=== PATIENT | female | born 1990 | race Caucasian/White ===

== ENCOUNTER 2023-08-06 12:30 | Inpatient (IN) ==
[~2023-08-06 12:30] MED LIST: NS IRRIGATION* 1,000 ML ONE
[2023-08-06] MEDS: LR 1,000 ML IV 1,000 ML IV ONE (12:49)
[2023-08-06] MEDS: REGLAN INJ 10 MG VIAL ONE (12:50)
[2023-08-06] MEDS: PEPCID 20 MG VIAL ONE (12:50)
[2023-08-06] MEDS: NOZIN NASAL SANITIZER TP ONE (12:50)
[2023-08-06] MEDS: NS 100 ML IV 100 ML ONE (13:11)
[2023-08-06] MEDS: ANCEF VIAL 1 GRAM ONE (13:11)
[2023-08-06 13:12] VITALS: BMI 22.6
[2023-08-06 13:21] LABS: BASOPHILS # (AUTO) 0.1 X10^3/uL (0.0-0.1); BASOPHILS % (AUTO) 1.1 % (0.2-1.0); EOSINOPHILS # (AUTO) 0.3 x10^3/uL (0.0-0.2); EOSINOPHILS % (AUTO) 2.6 % (0.9-2.9); HEMATOCRIT 33.9 % (36.0-47.0); HEMOGLOBIN 11.5 g/dL (12.0-16.0); LYMPHOCYTES # (AUTO) 1.1 X10^3/uL (1.3-2.9); LYMPHOCYTES % (AUTO) 10.3 % (21.0-51.0); MEAN CORPUSCULAR HEMOGLOBIN 28.2 pg (27.0-34.0); MEAN CORPUSCULAR HGB CONC 33.8 g/dL (33.0-35.0); MEAN CORPUSCULAR VOLUME 83.5 fL (80.0-100.0); MONOCYTES # (AUTO) 0.6 x10^3/uL (0.3-0.8); MONOCYTES % (AUTO) 5.1 % (0.0-13.0); NEUTROPHILS # (AUTO) 8.9 x10^3/uL (2.2-4.8); NEUTROPHILS % (AUTO) 80.9 % (42.0-75.0); PLATELET COUNT 375 X10^3/uL (150.0-450.0); RED BLOOD COUNT 4.07 X10^6/uL (3.5-5.4); RED CELL DISTRIBUTION WIDTH 13.6 % (11.6-16.5); WHITE BLOOD COUNT 10.9 X10^3/uL (3.6-10.0)
[2023-08-06] MEDS: DECADRON INJ ONE (13:23)
[2023-08-06] MEDS ORDERED: ULTANE GAS IN ONE (13:23)
[2023-08-06] MEDS: ROBINUL ONE (13:23)
[2023-08-06] MEDS: ZEMURON 100 MG VIAL ONE (13:23)
[2023-08-06] MEDS: FENTANYL VIAL INJ 100 mcg ONE (13:23)
[2023-08-06] MEDS: VERSED ONE (13:23)
[2023-08-06] MEDS: ZOFRAN INJ 4 MG VIAL ONE (13:23)
[2023-08-06] MEDS: TORADOL 30 MG VIAL ONE (13:23)
[2023-08-06] MEDS ORDERED: KETAMINE HCL ONE (13:23)
[2023-08-06 13:27] LABS: INR 1.08 (0.8-1.3)
[2023-08-06] MEDS: BETADINE SOLN ONE (13:30)
[2023-08-06 13:34] LABS: BLOOD UREA NITROGEN 10 mg/dL (7-18); CALCIUM 9.4 mg/dL (8.5-10.1); CARBON DIOXIDE 29.8 mmol/L (21-32); CHLORIDE 103 mmol/L (98-107); COR NA(FOR HYPERGLY) 141 mmol/L (136-145); CREATININE 0.67 mg/dL (0.55-1.02); GLUCOSE 116 mg/dL (65-99); POTASSIUM 3.7 mmol/L (3.5-5.1); SODIUM 141 mmol/L (136-145); eGFR NON BLACK RACES > 60 (>60)
[2023-08-06] MEDS: ProvayBLUE 0.5% ONE (13:46)
[2023-08-06] MEDS ORDERED: BENADRYL INJ 50 MG VIAL IVP PRN (14:01)
[2023-08-06] MEDS ORDERED: ZOFRAN INJ 4 MG VIAL IVP PRN ×2 (14:01→15:14)
[2023-08-06] MEDS ORDERED: TORADOL 30 MG VIAL ONE ×2 (14:13→23:04)
[2023-08-06] MEDS ORDERED: MORPHINE SULFATE INJ 10 MG ONE (14:29)
[2023-08-06 14:31] LABS: BILIRUBIN,URINE NEGATIVE (NEGATIVE); BLOOD/HEMOGLOBIN,URINE 3+ (NEGATIVE); GLUCOSE, URINE NEGATIVE (NEGATIVE); KETONES,URINE NEGATIVE (NEGATIVE); LEUKOCYTE ESTERASE ,URINE NEGATIVE (NEGATIVE); NITRITES,URINE NEGATIVE (NEGATIVE); PH,URINE 6.5 (5.0 - 8.0); PROTEIN,URINE 1+ (NEGATIVE); UROBILINOGEN,URINE NORMAL (NORMAL)
[2023-08-06 14:43] LABS: APPEARANCE,URINE CLEAR (CLEAR); BACTERIA,URINE TRACE /HPF (NEGATIVE); COLOR,URINE YELLOW (YELLOW); SQUAMOUS EPITHELIAL CELL,UR RARE /HPF (NEGATIVE)
[2023-08-06] MEDS ORDERED: DILAUDID INJ ONE ×2 (14:49→15:02)
[2023-08-06] MEDS: DILAUDID INJ IVP PRN (14:50)
[2023-08-06] MEDS: D5 1/2 NS 1,000 ML 1,000 ML IV SCH (15:48)
[2023-08-06] MEDS: PERCOCET TAB 5/325 MG PO PRN (18:08)
[2023-08-06] MEDS: TORADOL 30 MG VIAL IVP PRN (23:05)
[2023-08-07 04:41] LABS: BASOPHILS # (AUTO) 0.1 X10^3/uL (0.0-0.1); BASOPHILS % (AUTO) 0.6 % (0.2-1.0); HEMOGLOBIN 9.7 g/dL (12.0-16.0); LYMPHOCYTES # (AUTO) 0.7 X10^3/uL (1.3-2.9); LYMPHOCYTES % (AUTO) 7.1 % (21.0-51.0); MEAN CORPUSCULAR HGB CONC 33.4 g/dL (33.0-35.0); MEAN CORPUSCULAR VOLUME 83.8 fL (80.0-100.0); MEAN PLATELET VOLUME 8.2 fL (7.4-11.0); MONOCYTES # (AUTO) 0.7 x10^3/uL (0.3-0.8); MONOCYTES % (AUTO) 7.2 % (0.0-13.0); NEUTROPHILS # (AUTO) 8.7 x10^3/uL (2.2-4.8); NEUTROPHILS % (AUTO) 85.1 % (42.0-75.0); PLATELET COUNT 354 X10^3/uL (150.0-450.0); RED BLOOD COUNT 3.46 X10^6/uL (3.5-5.4); RED CELL DISTRIBUTION WIDTH 13.9 % (11.6-16.5); WHITE BLOOD COUNT 10.2 X10^3/uL (3.6-10.0)
[2023-08-07 04:52] LABS: BLOOD UREA NITROGEN 7 mg/dL (7-18); CALCIUM 8.2 mg/dL (8.5-10.1); CARBON DIOXIDE 27.8 mmol/L (21-32); CHLORIDE 104 mmol/L (98-107); COR NA(FOR HYPERGLY) 142 mmol/L (136-145); CREATININE 0.62 mg/dL (0.55-1.02); GLUCOSE 173 mg/dL (65-99); POTASSIUM 3.8 mmol/L (3.5-5.1); SODIUM 140 mmol/L (136-145); eGFR NON BLACK RACES > 60 (>60)
[2023-08-07] MEDS ORDERED: MOTRIN TAB 800 MG PO PRN (06:17)
[2023-08-07] MEDS ORDERED: CONSULT PHARMACY - POTASSIUM & MAGNESIUM XX SCH (07:00)
[2023-08-07] MEDS ORDERED: K-DUR TAB 20 MEQ PO SCH (09:00)
[2023-08-07 10:51] VITALS: BP 112/64; PULSE 77; RESP 16; TEMP 98.6; O2SAT 96
[2023-08-07] MEDS: COLACE CAP 100 MG PO SCH (11:39)
[2023-08-07] MEDS: BACTROBAN TOPICAL OINT ONE (11:40)
[2023-08-07] MEDS ORDERED: BACTROBAN TOPICAL OINT TOP SCH (14:00)
== END 2023-08-07 13:50 | disposition home or self-care (01) | DRG 819 ==
LOC: OBSVTOIN 12:38 → INTOOBSV 12:38 → MED/SURG 12:38
PROVIDERS: ADMIT Specialist; ATTEND Specialist
PROC: ECTOPOP (2023-08-06 12:45)
DX: O00.80 Other ectopic pregnancy without intrauterine pregnancy; I10 Essential (primary) hypertension